=== PATIENT | female | born 1970 | race Caucasian/White ===

== ENCOUNTER 2022-01-08 13:25 | Emergency (ER) | payer SELFPAY ==
[~2022-01-08] VITALS: Ht 167.6 cm; Wt 77.1 kg
[2022-01-08 13:26] VITALS: BP 148/77
[2022-01-08] MEDS ORDERED: BACITRACIN OINT 500 UNITS/GM PKT TP ONE (13:55)
--- NOTE | 2022-01-08 15:05 | NUR ---
wound to r ankle irrigated and dressed with non adherent x 1
[2022-01-08] MEDS ORDERED: cephALEXin 500 MG CAP PO ONE (15:30)
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
[2022-01-08] MEDS ORDERED: CEPH-588 PO (16:32)
[2022-01-08] MEDS ORDERED: SULF-59 PO (16:32)
[2022-01-08] MEDS ORDERED: BACI1PAC6 TP (16:32)
[2022-01-08] MEDS ORDERED: IBUP-2213 PO (16:32)
[2022-01-08] MEDS ORDERED: SULFAMETH/TRIMETH DS 800/160MG 1 TAB PO ONE (16:35)
[2022-01-08 17:19] VITALS: BP 148/77
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
== END 2022-01-08 17:19 | disposition home or self-care (01) ==
LOC: MED 13:25
DX: L03.115 Cellulitis of right lower limb (principal); F17.210 Nicotine dependence, cigarettes, uncomplicated; Z72.89 Other problems related to lifestyle
CPT/HCPCS: 73590; 73610; 90471; 90715; 99284

== ENCOUNTER 2022-01-09 11:01 | Emergency (ER) | payer SELFPAY ==
[~2022-01-09] VITALS: Ht 180.3 cm; Wt 81.6 kg
[~2022-01-09 11:01] MED LIST: BACI1PAC6 TP; CEPH-588 PO; IBUP-2213 PO; SULF-59 PO
[2022-01-09 11:03] VITALS: BP 141/70
--- NOTE | 2022-01-09 13:35 | NUR ---
PATIENT LEFT WITHOUT BEING SEEN BY DR. FRANCISCO. NO FURTHER CARE PROVIDED FOR PATIENT.
== END 2022-01-09 13:35 | disposition left against medical advice (07) ==
LOC: MED 11:01
DX: F10.129 Alcohol abuse with intoxication, unspecified (principal); Y90.9 Presence of alcohol in blood, level not specified; Z53.21 Procedure and treatment not carried out due to patient leaving prior to being seen by health care provider